=== PATIENT | male | born 1960 | race Caucasian/White ===

== ENCOUNTER 2021-01-14 15:14 | Outpatient (CLI) | payer OTHER, SELFPAY | END 2021-01-14 15:15 | disposition home or self-care (01) | LOC: ANHCOVIDVC 15:14 | PROVIDERS: PCP Physician Assistant | DX: Z23 Encounter for immunization (principal) | CPT/HCPCS: 0001A; 91300 ==

== ENCOUNTER 2021-02-04 15:12 | Outpatient (CLI) | payer OTHER, SELFPAY | END 2021-02-04 15:13 | disposition home or self-care (01) | LOC: ANHCOVIDVC 15:12 | PROVIDERS: PCP Physician Assistant | DX: Z23 Encounter for immunization (principal) | CPT/HCPCS: 0002A; 91300 ==